=== PATIENT | female | born 1965 | race African-American/Black ===

== ENCOUNTER 2025-04-21 15:54 | Inpatient (IN) | payer BC ==
[~2025-04-21] VITALS: Ht 190.5 cm; Wt 61.2 kg
[~2025-04-21 15:54] MED LIST: ASPI-1497 PO; ATOR40TA70 PO; COR6 PO; ERGO400C PO; FOLI-43 PO; GABA-529 PO; HYDR-4001 MT; LEVO25TA7 PO; NICO-786 TD; PANT40TA51 PO; POTA-204 PO; THIA100T72 MT
[2025-04-21 15:57] VITALS: O2SAT 99
[2025-04-21] MEDS: SODIUM CHLORIDE 0.9% 1,000 ML IV ONE (16:19)
[2025-04-21] MEDS: DEXTROSE 50% WATER 50ML SYRINGE IV ONE (16:19)
[2025-04-21 16:53] LABS: BASOPHILS % 0.3 % (0.0-2.0); EOSINOPHILS % 0.2 % (0.0-5.0); HEMATOCRIT. 22.7 % (36.0-48.0); HEMOGLOBIN. 7.5 g/dL (12.0-16.0); LYMPHOCYTES % 19.2 % (20.0-50.0); MEAN PLATELET VOLUME 8.1 fl (7.4-10.4); MONOCYTES % 13.7 % (2.0-8.0); NEUTROPHILS % 66.6 % (40.0-76.0); PLATELET 181 x1000/uL (130-400); RED BLOOD CELL COUNT 1.68 mill/uL (4.2-5.4); RED CELL DISTRIBUTION WIDTH 17.9 % (11.6-14.6)
[2025-04-21 16:55] LABS: ADD RBC MORPHOLOGY YES
[2025-04-21 17:16] LABS: UREA NITROGEN BLOOD 8 mg/dL (9-23)
[2025-04-21 17:18] LABS: PHOSPHORUS 2.6 mg/dL (2.5-4.9)
[2025-04-21 17:28] LABS: CREATININE 0.3 mg/dL (0.6-1.0)
[2025-04-21 17:57] LABS: PLATELET ESTIMATE NORMAL
[2025-04-21] MEDS: POTASSIUM CHLORIDE 20MEQ TABLET SR PO ONE (18:00)
[2025-04-21] MEDS ORDERED: CLONIDINE 0.1MG TABLET PO PRN (21:45)
[2025-04-21] MEDS ORDERED: ONDANSETRON HCL 4MG/2ML INJ IV PRN (21:45)
[2025-04-21] MEDS ORDERED: IPRATROPIUM/ALBUTEROL 0.5-3(2.5)MG/3ML NEB HHN PRN (21:45)
[2025-04-21] MEDS ORDERED: DOCUSATE SODIUM 100MG CAPSULE PO PRN (21:45)
[2025-04-21] MEDS: MAGNESIUM 2 G PREMIX 50 ML IV NR (22:07)
[2025-04-21] MEDS: SODIUM CHLORIDE 0.9% 1,000 ML IV SCH (22:07)
[2025-04-21] MEDS: POTASSIUM CHLORIDE 20MEQ TABLET SR PO NR (22:38)
[2025-04-21] MEDS: HYDROCODONE/ACETAMINOPHEN 5/325MG TABLET PO PRN (22:59)
[2025-04-22 00:06] LABS: CREATINE KINASE MB FRACTION 0.9 ng/mL (0.5-3.6)
[2025-04-22 00:07] LABS: TROPONIN I HIGH SENSITIVITY < 4 ng/L (3.0-34)
[2025-04-22 00:10] LABS: T4 FREE 0.63 ng/dL (0.89-1.76)
[2025-04-22] MEDS: ACETAMINOPHEN 325MG TABLET PO PRN (04:16)
[2025-04-22] MEDS: POTASSIUM CHLORIDE 20MEQ TABLET SR PO SCH (04:17)
[2025-04-22] MEDS: PIPERACILLIN/TAZO 3.375G/50ML 50 ML IV SCH (05:28)
[2025-04-22] MEDS: BLOOD SUGAR DIAGNOSTIC STRIP TEST SCH (06:45)
[2025-04-22 07:15] VITALS: BP 94/68; PULSE 110; RESP 20; TEMP 36.7
[2025-04-22 08:00] VITALS: BP 102/75; RESP 18; TEMP 36.6; O2SAT 97
[2025-04-22] MEDS: INSULIN LISPRO 100 UNITS/ML SUBCUT SCH (09:15)
[2025-04-22] MEDS: PANTOPRAZOLE SODIUM 40 MG/VIAL IV SCH (11:37)
[2025-04-22 12:00] VITALS: BP 91/66; PULSE 97; RESP 18; TEMP 36.7; O2SAT 97
[2025-04-22 12:41] LABS: BASOPHILS % 0.4 % (0.0-2.0); EOSINOPHILS % 0.6 % (0.0-5.0); LYMPHOCYTES % 22.6 % (20.0-50.0); MEAN PLATELET VOLUME 8.6 fl (7.4-10.4); MONOCYTES % 11.4 % (2.0-8.0); NEUTROPHILS % 65.0 % (40.0-76.0); PLATELET 179 x1000/uL (130-400); RED BLOOD CELL COUNT 1.51 mill/uL (4.2-5.4); RED CELL DISTRIBUTION WIDTH 18.3 % (11.6-14.6)
[2025-04-22 12:54] LABS: HEMATOCRIT. 20.2 % (36.0-48.0); HEMOGLOBIN. 6.7 g/dL (12.0-16.0)
[2025-04-22 12:56] LABS: TRIGLYCERIDE 271 mg/dL (0-150); UREA NITROGEN BLOOD 11 mg/dL (9-23)
[2025-04-22 12:57] LABS: ASPARTATE AMINOTRANSFERASE 218 IU/L (<34); LDL CHOLESTEROL 75 mg/dL (5-100)
[2025-04-22 12:58] LABS: BILIRUBIN DIRECT 2.9 mg/dL (<=3.0); CREATINE KINASE MB FRACTION 0.9 ng/mL (0.5-3.6); PHOSPHORUS 1.2 mg/dL (2.5-4.9); TROPONIN I HIGH SENSITIVITY < 4 ng/L (3.0-34)
[2025-04-22 12:59] LABS: BILIRUBIN TOTAL 4.1 mg/dL (0.1-1.0); PROTEIN TOTAL 4.6 g/dL (6.0-8.3)
[2025-04-22 13:02] LABS: INR 1.3
[2025-04-22 13:03] LABS: FOLIC ACID (FOLATE) SERUM 4.73 ng/mL (>5.38)
[2025-04-22 13:11] LABS: CREATININE 0.5 mg/dL (0.6-1.0)
[2025-04-22 13:12] LABS: VITAMIN B12 SERUM > 2000 pg/mL (211-911)
[2025-04-22 16:00] VITALS: BP 93/65; PULSE 95; RESP 18; TEMP 36.6; O2SAT 97
[2025-04-22 18:44] LABS: ASPARTATE AMINOTRANSFERASE 197 IU/L (<34); BILIRUBIN DIRECT 2.7 mg/dL (<=3.0); BILIRUBIN TOTAL 3.8 mg/dL (0.1-1.0); PROTEIN TOTAL 4.6 g/dL (6.0-8.3)
[2025-04-22] MEDS ORDERED: SODIUM CHLORIDE 0.9% (SEPSIS BOLUS) IV ONE (19:45)
[2025-04-22 20:00] VITALS: BP 97/69; PULSE 101; RESP 18; TEMP 36.7; O2SAT 100
[2025-04-22] MEDS: SODIUM CHLORIDE 0.9% 1,000 ML IV ONE (20:00)
[2025-04-22] MEDS ORDERED: SODIUM PHOSPHATE 15 MMOL in DEXT 5% WATER 245 ML IV SCH (21:00)
[2025-04-22 23:20] LABS: BG BASE EXCESS 2.2 mmol/L (-2.0-3.0); BG CARBOXYHEMOGLOBIN 0.9 % (0.5-1.5); BG DEOXYHEMOGLOBIN 3.7 % (0.0-5.0); BG FRACTION INSPIRED OXYGEN 21; BG HCO3 ACT 24.6 mmol/L (21.0-28.0); BG METHEMOGLOBIN 0.1 % (0.5-1.5); BG OXYGEN SATURATION 96.3 % (94.0-98.0); BG OXYHEMOGLOBIN 95.3 % (94.0-98.0); BG PCO2 29.2 mmHg (32.0-45.0); BG PH 7.544 (7.350-7.450); BG PO2 86.7 mmHg (83.0-108.0); BG SAMPLE SITE RIGHT RADIAL; BG TOTAL HEMOGLOBIN 7.3 g/dL (12.0-16.0); BG VENT MODE ROOM AIR
[2025-04-23] VITALS (12 sets, daily range): BP systolic 86–121; BP diastolic 61–90; PULSE 96–116; RESP 16–20; TEMP 35.11392–37; O2SAT 95–100
[2025-04-23 05:59] LABS: *AMPHETAMINES SCREEN URINE NEGATIVE (NEGATIVE); *BARBITURATES SCREEN URINE NEGATIVE (NEGATIVE); *BENZODIAZEPINES SCREEN URINE NEGATIVE (NEGATIVE); *COCAINE SCREEN URINE NEGATIVE (NEGATIVE); CANNABINOID URINE SCREEN PRESUMPTIVE POSITIVE (NEGATIVE); ECSTASY MDMA SCREEN URINE NEGATIVE (NEGATIVE); METHADONE URINE SCREEN NEGATIVE (NEGATIVE); OPIATES URINE SCREEN PRESUMPTIVE POSITIVE (NEGATIVE); PHENCYCLIDINE URINE SCREEN NEGATIVE (NEGATIVE)
[2025-04-23 06:13] LABS: CLARITY URINE CLOUDY (CLEAR); COLOR URINE DARK YELLOW (YELLOW); GLUCOSE URINE NEGATIVE (NEGATIVE); KETONES URINE TRACE (NEGATIVE); LEUKOCYTE ESTERASE URINE 1+ (NEGATIVE); NITRITE URINE POSITIVE (NEGATIVE); OCCULT BLOOD URINE NEGATIVE (NEGATIVE); PH URINE 8.5 (4.5-8.0); PROTEIN URINE 1+ (NEGATIVE); SPECIFIC GRAVITY URINE 1.025 (1.005-1.030); UROBILINOGEN URINE 4.0 E.U./dL (0.2-1.0)
[2025-04-23] MEDS: LEVOTHYROXINE SODIUM 50MCG TABLET PO SCH (06:15)
[2025-04-23 06:27] LABS: BASOPHILS % 0.3 % (0.0-2.0); EOSINOPHILS % 0.9 % (0.0-5.0); LYMPHOCYTES % 23.2 % (20.0-50.0); MEAN PLATELET VOLUME 8.4 fl (7.4-10.4); MONOCYTES % 6.4 % (2.0-8.0); NEUTROPHILS % 69.2 % (40.0-76.0); PLATELET 179 x1000/uL (130-400); RED BLOOD CELL COUNT 1.46 mill/uL (4.2-5.4); RED CELL DISTRIBUTION WIDTH 18.0 % (11.6-14.6)
[2025-04-23 06:33] LABS: HYALINE CASTS URINE 0-5 /lpf; SQUAMOUS EPITHELIAL CELL URINE 2+ /lpf (RARE/1+)
[2025-04-23 06:34] LABS: WBC URINE 0-2 /hpf (0-2)
[2025-04-23 06:35] LABS: BACTERIA URINE 3+; RBC URINE NONE SEEN /hpf (0-2); YEAST URINE 1+
[2025-04-23 06:36] LABS: CREATININE 0.5 mg/dL (0.6-1.0)
[2025-04-23 06:37] LABS: UREA NITROGEN BLOOD 11 mg/dL (9-23)
[2025-04-23 06:38] LABS: LACTATE DEHYDROGENASE 365 IU/L (120-246)
[2025-04-23 06:52] LABS: HEMATOCRIT. 19.5 % (36.0-48.0); HEMOGLOBIN. 6.6 g/dL (12.0-16.0)
[2025-04-23] MEDS: FOLIC ACID 1MG TABLET PO SCH (08:44)
[2025-04-23 20:10] LABS: PLATELET 180 x1000/uL (130-400); RED BLOOD CELL COUNT 1.91 mill/uL (4.2-5.4); RED CELL DISTRIBUTION WIDTH 21.2 % (11.6-14.6)
[2025-04-24] VITALS: BP 102/77; PULSE 91; RESP 16; TEMP 36.4; O2SAT 97
[2025-04-24 04:00] VITALS: BP 99/46; PULSE 121; RESP 16; TEMP 36.4; O2SAT 97
[2025-04-24 06:46] LABS: BASOPHILS % 0.3 % (0.0-2.0); EOSINOPHILS % 0.9 % (0.0-5.0); HEMATOCRIT. 21.2 % (36.0-48.0); HEMOGLOBIN. 7.2 g/dL (12.0-16.0); LYMPHOCYTES % 20.7 % (20.0-50.0); MEAN PLATELET VOLUME 8.8 fl (7.4-10.4); MONOCYTES % 8.0 % (2.0-8.0); NEUTROPHILS % 70.1 % (40.0-76.0); PLATELET 173 x1000/uL (130-400); RED BLOOD CELL COUNT 1.63 mill/uL (4.2-5.4); RED CELL DISTRIBUTION WIDTH 21.6 % (11.6-14.6)
[2025-04-24 07:08] LABS: CREATININE 0.4 mg/dL (0.6-1.0); UREA NITROGEN BLOOD 9 mg/dL (9-23)
[2025-04-24 07:10] LABS: ASPARTATE AMINOTRANSFERASE 154 IU/L (<34); BILIRUBIN TOTAL 3.2 mg/dL (0.1-1.0); PROTEIN TOTAL 4.7 g/dL (6.0-8.3)
[2025-04-24 08:00] VITALS: BP 98/68; PULSE 106; RESP 18; TEMP 36.2; O2SAT 100
[2025-04-24] MEDS ORDERED: IOHEXOL-350 100 ML BOTTLE ONE (10:19)
[2025-04-24] MEDS: POTASSIUM CHLORIDE 20MEQ TABLET SR PO SCH (11:00)
[2025-04-24 12:00] VITALS: BP 84/62; PULSE 97; RESP 18; TEMP 36.4; O2SAT 99
[2025-04-24 14:07] LABS: FOLICLE STIMULATING HORMONE 31.4 mIU/mL (.); PROLACTIN 12.2 ng/mL (3.6-25.2)
[2025-04-24 16:00] VITALS: BP 80/55; PULSE 99; RESP 18; TEMP 36.3; O2SAT 97
[2025-04-24 20:00] VITALS: BP 102/74; PULSE 103; RESP 16; TEMP 36.4; O2SAT 100
[2025-04-25] VITALS (8 sets, daily range): BP systolic 82–106; BP diastolic 59–76; PULSE 90–100; RESP 18–61; TEMP 35.9–36.7; O2SAT 94–100
[2025-04-25 06:32] LABS: BASOPHILS % 0.6 % (0.0-2.0); CREATININE 0.5 mg/dL (0.6-1.0); EOSINOPHILS % 1.4 % (0.0-5.0); LYMPHOCYTES % 27.5 % (20.0-50.0); MEAN PLATELET VOLUME 8.9 fl (7.4-10.4); MONOCYTES % 10.0 % (2.0-8.0); NEUTROPHILS % 60.5 % (40.0-76.0); PLATELET 143 x1000/uL (130-400); RED BLOOD CELL COUNT 1.46 mill/uL (4.2-5.4); RED CELL DISTRIBUTION WIDTH 21.2 % (11.6-14.6)
[2025-04-25 06:33] LABS: UREA NITROGEN BLOOD 10 mg/dL (9-23)
[2025-04-25 06:35] LABS: ASPARTATE AMINOTRANSFERASE 109 IU/L (<34); BILIRUBIN DIRECT 1.6 mg/dL (<=3.0); PROTEIN TOTAL 4.2 g/dL (6.0-8.3)
[2025-04-25 06:39] LABS: BILIRUBIN TOTAL 2.2 mg/dL (0.1-1.0)
[2025-04-25] MEDS: POTASSIUM CHLORIDE 20MEQ TABLET SR PO NR (06:55)
[2025-04-25 07:49] LABS: HEMATOCRIT. 19.1 % (36.0-48.0)
[2025-04-25 07:52] LABS: HEMOGLOBIN. 6.3 g/dL (12.0-16.0)
[2025-04-25] MEDS ORDERED: NALOXONE HCL 0.4MG/ML VIAL IV PRN (08:45)
[2025-04-25] MEDS: HYDROCODONE/ACETAMINOPHEN 5/325MG TABLET PO PRN (09:03)
[2025-04-25] MEDS: FOLIC ACID 1MG TABLET PO SCH (09:04)
[2025-04-25] MEDS: MIDODRINE HCL 5MG TABLET PO SCH (09:04)
[2025-04-26] VITALS: BP 90/70; PULSE 99; RESP 18; TEMP 35.7; O2SAT 99
[2025-04-26 04:00] VITALS: BP 90/68; PULSE 99; RESP 18; TEMP 35.9; O2SAT 99
[2025-04-26 06:32] LABS: BASOPHILS % 1.3 % (0.0-2.0); EOSINOPHILS % 1.6 % (0.0-5.0); HEMATOCRIT. 22.7 % (36.0-48.0); HEMOGLOBIN. 7.3 g/dL (12.0-16.0); LYMPHOCYTES % 29.4 % (20.0-50.0); MEAN PLATELET VOLUME 8.7 fl (7.4-10.4); MONOCYTES % 12.9 % (2.0-8.0); NEUTROPHILS % 54.8 % (40.0-76.0); PLATELET 153 x1000/uL (130-400); RED BLOOD CELL COUNT 1.67 mill/uL (4.2-5.4); RED CELL DISTRIBUTION WIDTH 21.6 % (11.6-14.6)
[2025-04-26 06:38] LABS: ADD RBC MORPHOLOGY NO
[2025-04-26 07:15] LABS: CREATININE 0.4 mg/dL (0.6-1.0)
[2025-04-26 07:16] LABS: UREA NITROGEN BLOOD 10 mg/dL (9-23)
[2025-04-26 07:18] LABS: ASPARTATE AMINOTRANSFERASE 104 IU/L (<34); BILIRUBIN DIRECT 1.7 mg/dL (<=3.0); BILIRUBIN TOTAL 2.2 mg/dL (0.1-1.0); PROTEIN TOTAL 4.8 g/dL (6.0-8.3)
[2025-04-26 08:00] VITALS: BP 103/74; PULSE 80; RESP 20; TEMP 36.4; O2SAT 100
[2025-04-26] MEDS: CYANOCOBALAMIN 1000MCG/ML VIAL IM SCH (10:58)
[2025-04-26 12:00] VITALS: BP 107/76; PULSE 89; RESP 20; TEMP 36.4; O2SAT 98
[2025-04-26 16:00] VITALS: BP 102/74; PULSE 92; RESP 18; TEMP 36.7; O2SAT 99
[2025-04-26] MEDS: DEXTROSE 50% WATER 50ML SYRINGE IV PRN (17:58)
[2025-04-26 20:00] VITALS: BP 109/77; PULSE 89; RESP 19; TEMP 36.3; O2SAT 100
[2025-04-27] VITALS: BP 100/69; PULSE 90; RESP 18; TEMP 36.4; O2SAT 100
[2025-04-27 04:00] VITALS: BP 110/76; PULSE 85; RESP 19; TEMP 36.3; O2SAT 98
[2025-04-27 07:00] LABS: HEMATOCRIT. 24.0 % (36.0-48.0); HEMOGLOBIN. 7.6 g/dL (12.0-16.0); RED BLOOD CELL COUNT 1.72 mill/uL (4.2-5.4); RED CELL DISTRIBUTION WIDTH 21.3 % (11.6-14.6)
[2025-04-27 07:46] LABS: CREATININE 0.5 mg/dL (0.6-1.0)
[2025-04-27 07:47] LABS: UREA NITROGEN BLOOD 8 mg/dL (9-23)
[2025-04-27 07:48] LABS: ASPARTATE AMINOTRANSFERASE 77 IU/L (<34); BILIRUBIN DIRECT 1.5 mg/dL (<=3.0)
[2025-04-27 07:49] LABS: BILIRUBIN TOTAL 2.0 mg/dL (0.1-1.0); PHOSPHORUS 2.0 mg/dL (2.5-4.9); PROTEIN TOTAL 4.7 g/dL (6.0-8.3)
[2025-04-27 08:00] VITALS: BP 105/77; PULSE 86; RESP 18; TEMP 36.4; O2SAT 100
[2025-04-27 09:45] LABS: PLATELET 139 x1000/uL (130-400)
[2025-04-27 09:49] LABS: SICKLE CELL SCREEN NEGATIVE (NEGATIVE)
[2025-04-27 09:53] LABS: BAND% 9.0 % (1.0-6.0); LYMPHOCYTES % MANUAL 30.0 % (20.0-60.0); MONOCYTES % MANUAL 12.0 % (2.0-8.0); NEUTROPHILS % MANUAL 49.0 % (45.0-75.0)
[2025-04-27 09:54] LABS: PLATELET ESTIMATE NORMAL
[2025-04-27 11:33] LABS: INR 1.3
[2025-04-27 12:00] VITALS: BP 112/91; PULSE 91; RESP 18; TEMP 36.4; O2SAT 100
[2025-04-27 16:00] VITALS: BP 93/66; PULSE 85; RESP 18; TEMP 36.4; O2SAT 100
[2025-04-27] MEDS: POTASSIUM PHOSPHATE 15 MMOL in DEXT 5% WATER 245 ML IV NR (16:18)
[2025-04-27] MEDS: LACTULOSE 20G/30ML UDC PO SCH (16:18)
[2025-04-27 20:00] VITALS: BP 100/74; PULSE 89; RESP 19; TEMP 36.7; O2SAT 95
[2025-04-27] MEDS: MAGNESIUM 2 G PREMIX 50 ML IV NR (20:37)
[2025-04-27] MEDS: PIPERACILLIN/TAZO 3.375G/50ML 50 ML IV SCH (22:55)
[2025-04-28] VITALS: BP 120/88; PULSE 75; RESP 18; TEMP 36.1; O2SAT 100
[2025-04-28 04:00] VITALS: BP 108/77; PULSE 51; RESP 18; TEMP 36.8; O2SAT 96
[2025-04-28 08:00] VITALS: BP 116/83; PULSE 80; RESP 18; TEMP 36.3; O2SAT 98
[2025-04-28] MEDS: METRONIDAZOLE 500 MG PREMIX 100 ML IV SCH (10:05)
[2025-04-28 10:26] LABS: HEMATOCRIT. 24.9 % (36.0-48.0); HEMOGLOBIN. 8.1 g/dL (12.0-16.0); MEAN PLATELET VOLUME 8.9 fl (7.4-10.4); PLATELET 173 x1000/uL (130-400); RED BLOOD CELL COUNT 1.87 mill/uL (4.2-5.4); RED CELL DISTRIBUTION WIDTH 20.1 % (11.6-14.6)
[2025-04-28 10:37] LABS: UREA NITROGEN BLOOD 6 mg/dL (9-23)
[2025-04-28 10:39] LABS: ASPARTATE AMINOTRANSFERASE 83 IU/L (<34); BILIRUBIN DIRECT 1.5 mg/dL (<=3.0); BILIRUBIN TOTAL 2.2 mg/dL (0.1-1.0)
[2025-04-28 10:40] LABS: PROTEIN TOTAL 4.9 g/dL (6.0-8.3)
[2025-04-28 11:11] LABS: CREATININE 0.3 mg/dL (0.6-1.0)
[2025-04-28] MEDS: LEVOFLOXACIN 750MG PREMIX 150 ML IV SCH (11:17)
[2025-04-28 12:00] VITALS: BP 99/74; PULSE 91; RESP 18; TEMP 36.5; O2SAT 100
[2025-04-28 15:34] LABS: BAND% 4.0 % (1.0-6.0); LYMPHOCYTES % MANUAL 42.0 % (20.0-60.0); MONOCYTES % MANUAL 17.0 % (2.0-8.0); NEUTROPHILS % MANUAL 37.0 % (45.0-75.0); PLATELET ESTIMATE NORMAL
[2025-04-28 16:00] VITALS: BP 104/75; PULSE 91; RESP 18; TEMP 36.4; O2SAT 99
[2025-04-28 20:00] VITALS: BP 128/84; PULSE 60; RESP 18; TEMP 36.7; O2SAT 98
[2025-04-29] VITALS (7 sets, daily range): BP systolic 90–122; BP diastolic 64–87; PULSE 61–99; RESP 16–18; TEMP 36.2–37.3; O2SAT 94–100
[2025-04-29] MEDS: ENOXAPARIN 60MG/0.6ML SYR SUBCUT SCH (16:46)
[2025-04-30] VITALS (11 sets, daily range): BP systolic 101–124; BP diastolic 64–95; PULSE 82–102; RESP 18–20; TEMP 36.2–37.16964; O2SAT 94–98
[2025-04-30] MEDS ORDERED: HYDRALAZINE 20MG/ML VIAL IV PRN (03:15)
[2025-04-30 08:15] LABS: HEMATOCRIT. 21.9 % (36.0-48.0); MEAN PLATELET VOLUME 9.1 fl (7.4-10.4); PLATELET 152 x1000/uL (130-400); RED BLOOD CELL COUNT 1.62 mill/uL (4.2-5.4); RED CELL DISTRIBUTION WIDTH 19.3 % (11.6-14.6)
[2025-04-30 08:28] LABS: HEMOGLOBIN. 7.0 g/dL (12.0-16.0)
[2025-04-30 08:29] LABS: UREA NITROGEN BLOOD 6 mg/dL (9-23)
[2025-04-30 08:31] LABS: ASPARTATE AMINOTRANSFERASE 45 IU/L (<34); BILIRUBIN DIRECT 1.3 mg/dL (<=3.0); BILIRUBIN TOTAL 1.7 mg/dL (0.1-1.0); PROTEIN TOTAL 4.1 g/dL (6.0-8.3)
[2025-04-30 09:06] LABS: CREATININE 0.5 mg/dL (0.6-1.0)
[2025-04-30 09:25] LABS: HEPATITIS A AB IGM NEGATIVE (Negative)
[2025-04-30 09:26] LABS: HEPATITIS B CORE AB IGM NEGATIVE (Negative); HEPATITIS C AB NON REACTIVE (Neg) (Negative)
[2025-04-30 13:55] LABS: BAND% 4.0 % (1.0-6.0); EOSINOPHILS % MANUAL 1.0 % (0.0-5.0); LYMPHOCYTES % MANUAL 26.0 % (20.0-60.0); MONOCYTES % MANUAL 14.0 % (2.0-8.0); NEUTROPHILS % MANUAL 55.0 % (45.0-75.0); PLATELET ESTIMATE NORMAL
[2025-05-01] VITALS: BP 118/85; PULSE 98; RESP 18; TEMP 36.6; O2SAT 95
[2025-05-01 04:00] VITALS: BP 126/93; PULSE 89; RESP 18; TEMP 36.6; O2SAT 98
[2025-05-01 07:03] LABS: HEMATOCRIT. 24.0 % (36.0-48.0); HEMOGLOBIN. 8.0 g/dL (12.0-16.0); MEAN PLATELET VOLUME 9.3 fl (7.4-10.4); PLATELET 146 x1000/uL (130-400); RED BLOOD CELL COUNT 1.99 mill/uL (4.2-5.4); RED CELL DISTRIBUTION WIDTH 27.0 % (11.6-14.6)
[2025-05-01 07:25] LABS: CREATININE 0.4 mg/dL (0.6-1.0); UREA NITROGEN BLOOD 5 mg/dL (9-23)
[2025-05-01 08:00] VITALS: BP 118/84; PULSE 87; RESP 18; TEMP 36.6; O2SAT 98
[2025-05-01] MEDS: POTASSIUM CHLORIDE 20MEQ TABLET SR PO SCH (09:24)
[2025-05-01 12:00] VITALS: BP 124/91; PULSE 82; RESP 18; TEMP 36.6; O2SAT 96
[2025-05-01 14:22] LABS: LYMPHOCYTES % MANUAL 28.0 % (20.0-60.0); MONOCYTES % MANUAL 10.0 % (2.0-8.0); NEUTROPHILS % MANUAL 62.0 % (45.0-75.0); PLATELET ESTIMATE NORMAL
[2025-05-01 16:00] VITALS: PULSE 103; RESP 18; TEMP 36.6; O2SAT 96
[2025-05-01 20:00] VITALS: BP 117/83; PULSE 87; RESP 18; TEMP 36.4; O2SAT 97
[2025-05-02] VITALS: BP 129/92; PULSE 98; RESP 18; TEMP 37.3; O2SAT 98
[2025-05-02 04:00] VITALS: BP 118/76; PULSE 92; RESP 18; TEMP 36.4; O2SAT 96
[2025-05-02 12:00] VITALS: BP 162/135; PULSE 97; RESP 18; TEMP 36.4; O2SAT 98
[2025-05-02 16:00] VITALS: BP 124/95; PULSE 91; RESP 18; TEMP 36.4; O2SAT 100
[2025-05-02] MEDS: DEXT 5%/0.9% NACL 1,000 ML IV SCH (17:15)
[2025-05-02 20:00] VITALS: BP 107/69; PULSE 53; RESP 53; TEMP 36.1; O2SAT 18
[2025-05-03] VITALS: BP 128/91; PULSE 104; RESP 17; TEMP 36.8; O2SAT 98
[2025-05-03 04:00] VITALS: BP 135/98; PULSE 104; RESP 19; TEMP 36.9; O2SAT 99
[2025-05-03 06:36] LABS: BASOPHILS % 1.3 % (0.0-2.0); EOSINOPHILS % 0.3 % (0.0-5.0); HEMATOCRIT. 25.9 % (36.0-48.0); HEMOGLOBIN. 8.4 g/dL (12.0-16.0); LYMPHOCYTES % 28.2 % (20.0-50.0); MEAN PLATELET VOLUME 8.8 fl (7.4-10.4); MONOCYTES % 10.5 % (2.0-8.0); NEUTROPHILS % 59.7 % (40.0-76.0); PLATELET 155 x1000/uL (130-400); RED BLOOD CELL COUNT 2.11 mill/uL (4.2-5.4); RED CELL DISTRIBUTION WIDTH 25.4 % (11.6-14.6)
[2025-05-03 07:04] LABS: CREATININE 0.4 mg/dL (0.6-1.0); UREA NITROGEN BLOOD < 5 mg/dL (9-23)
[2025-05-03 07:07] LABS: T4 FREE 0.67 ng/dL (0.89-1.76)
[2025-05-03 08:00] VITALS: BP 132/93; PULSE 94; RESP 18; TEMP 36.6; O2SAT 97
[2025-05-03] MEDS: ACETAMINOPHEN 325MG TABLET PO PRN (08:45)
[2025-05-03] MEDS: POTASSIUM CHLORIDE 20MEQ TABLET SR PO SCH ×2 (09:44→12:15)
[2025-05-03 12:00] VITALS: BP 117/90; PULSE 88; RESP 16; TEMP 36.9; O2SAT 98
[2025-05-03 16:00] VITALS: BP 126/96; PULSE 95; RESP 18; TEMP 36.2; O2SAT 99
[2025-05-03 20:00] VITALS: BP 123/87; PULSE 100; RESP 18; TEMP 36.3; O2SAT 97
[2025-05-04] VITALS: BP 118/85; PULSE 100; RESP 18; TEMP 36.5; O2SAT 98
[2025-05-04 04:00] VITALS: BP 117/89; PULSE 93; RESP 18; TEMP 36.4; O2SAT 98
[2025-05-04 05:52] LABS: CREATININE 0.4 mg/dL (0.6-1.0)
[2025-05-04 05:54] LABS: UREA NITROGEN BLOOD < 5 mg/dL (9-23)
[2025-05-04 05:55] LABS: PHOSPHORUS 3.2 mg/dL (2.5-4.9)
[2025-05-04 05:56] LABS: BILIRUBIN TOTAL 1.4 mg/dL (0.1-1.0)
[2025-05-04 05:57] LABS: BASOPHILS % 1.1 % (0.0-2.0); EOSINOPHILS % 0.2 % (0.0-5.0); HEMATOCRIT. 27.8 % (36.0-48.0); HEMOGLOBIN. 8.9 g/dL (12.0-16.0); LYMPHOCYTES % 24.8 % (20.0-50.0); MEAN PLATELET VOLUME 8.7 fl (7.4-10.4); MONOCYTES % 11.4 % (2.0-8.0); NEUTROPHILS % 62.5 % (40.0-76.0); PLATELET 174 x1000/uL (130-400); RED BLOOD CELL COUNT 2.24 mill/uL (4.2-5.4); RED CELL DISTRIBUTION WIDTH 25.0 % (11.6-14.6)
[2025-05-04] MEDS: LEVOTHYROXINE SODIUM 75MCG TABLET PO SCH (06:31)
[2025-05-04 08:00] VITALS: BP 126/93; PULSE 98; RESP 18; TEMP 36.7; O2SAT 98
[2025-05-04] MEDS: MAGNESIUM 2 G PREMIX 50 ML IV NR (08:01)
[2025-05-04 12:00] VITALS: BP 110/78; PULSE 92; RESP 20; TEMP 36.6; O2SAT 99
[2025-05-04 20:00] VITALS: BP 108/81; PULSE 86; RESP 20; TEMP 36.6; O2SAT 97
[2025-05-04] MEDS ORDERED: IOHEXOL-300 100 ML BOTTLE ONE (22:07)
[2025-05-05] VITALS (12 sets, daily range): BP systolic 109–142; BP diastolic 83–102; PULSE 81–110; RESP 16–27; TEMP 36.3–37; O2SAT 97–100
[2025-05-05] MEDS ORDERED: IOHEXOL-300 100 ML BOTTLE ONE (07:15)
[2025-05-05] MEDS ORDERED: LIDOCAINE HCL 1% 10 MG/ML 10ML VIAL ONE (07:15)
[2025-05-05] MEDS: CEFAZOLIN 1000MG PREMIX 50 ML IV ONE (07:45)
[2025-05-05 09:36] LABS: INR 1.2
[2025-05-05 09:43] LABS: BASOPHILS % 0.8 % (0.0-2.0); EOSINOPHILS % 0.5 % (0.0-5.0); HEMATOCRIT. 32.3 % (36.0-48.0); HEMOGLOBIN. 10.6 g/dL (12.0-16.0); LYMPHOCYTES % 19.3 % (20.0-50.0); MEAN PLATELET VOLUME 9.1 fl (7.4-10.4); MONOCYTES % 6.6 % (2.0-8.0); NEUTROPHILS % 72.8 % (40.0-76.0); PLATELET 211 x1000/uL (130-400); RED BLOOD CELL COUNT 2.66 mill/uL (4.2-5.4); RED CELL DISTRIBUTION WIDTH 24.2 % (11.6-14.6)
[2025-05-05 09:52] LABS: UREA NITROGEN BLOOD < 5 mg/dL (9-23)
[2025-05-05 09:53] LABS: CREATININE 0.4 mg/dL (0.6-1.0)
[2025-05-05 09:55] LABS: ASPARTATE AMINOTRANSFERASE 26 IU/L (<34); BILIRUBIN DIRECT 1.3 mg/dL (<=3.0); PHOSPHORUS 3.2 mg/dL (2.5-4.9)
[2025-05-05 09:56] LABS: BILIRUBIN TOTAL 1.7 mg/dL (0.1-1.0); PROTEIN TOTAL 6.0 g/dL (6.0-8.3)
[2025-05-05] MEDS: PIPERACILLIN/TAZO 3.375G/50ML 50 ML IV SCH (09:59)
[2025-05-05] MEDS ORDERED: HEPARIN 25,000 UNITS PREMIX 250 ML IV SCH (11:30)
[2025-05-05] MEDS: HEPARIN 80 UNITS/KG BOLUS IV NR (12:51)
[2025-05-05] MEDS: HEPARIN 25,000 UNITS PREMIX 250 ML IV SCH (14:59)
[2025-05-05] MEDS ORDERED: HEPARIN BOLUS PRN aPTT 37-44 IV (17:00)
[2025-05-05] MEDS ORDERED: HEPARIN BOLUS PRN aPTT <36 IV (17:00)
[2025-05-05] MEDS: RIVAROXABAN 10 MG TABLET PO SCH (17:10)
[2025-05-06] VITALS (42 sets, daily range): BP systolic 62–155; BP diastolic 27–138; PULSE 92–124; RESP 13–30; TEMP 36.2–36.5; O2SAT 96–99
[2025-05-06] MEDS ORDERED: NALOXONE HCL 0.4MG/ML VIAL IV PRN (01:15)
[2025-05-06 06:07] LABS: CREATININE 0.4 mg/dL (0.6-1.0); UREA NITROGEN BLOOD < 5 mg/dL (9-23)
[2025-05-06] MEDS ORDERED: RIVAROXABAN 2.5 MG TABLET PO SCH (09:00)
[2025-05-06 11:29] LABS: BASOPHILS % 1.3 % (0.0-2.0); EOSINOPHILS % 0.6 % (0.0-5.0); HEMATOCRIT. 29.9 % (36.0-48.0); HEMOGLOBIN. 9.8 g/dL (12.0-16.0); LYMPHOCYTES % 24.4 % (20.0-50.0); MEAN PLATELET VOLUME 9.2 fl (7.4-10.4); MONOCYTES % 9.8 % (2.0-8.0); NEUTROPHILS % 63.9 % (40.0-76.0); PLATELET 225 x1000/uL (130-400); RED BLOOD CELL COUNT 2.41 mill/uL (4.2-5.4); RED CELL DISTRIBUTION WIDTH 24.3 % (11.6-14.6)
[2025-05-06] MEDS ORDERED: HEPARIN 1000 UNITS/ML 10ML ONE (11:57)
[2025-05-06] MEDS ORDERED: LIDOCAINE HCL 1% 20ML VIAL ONE (11:57)
[2025-05-06] MEDS ORDERED: IODIXANOL 320MG/ML 100 ML BOTTLE IV ONE ×2 (11:57→14:02)
[2025-05-06] MEDS ORDERED: MIDAZOLAM HCL 2 MG/2 ML VIAL ONE ×2 (12:42→13:11)
[2025-05-06] MEDS ORDERED: FENTANYL CITRATE/PF 50MCG/ML 2ML VIAL ONE ×2 (12:42→13:11)
[2025-05-06] MEDS ORDERED: DIPHENHYDRAMINE 50MG/ML VIAL ONE (13:26)
[2025-05-06 15:24] LABS: BASOPHILS % 0.9 % (0.0-2.0); EOSINOPHILS % 0.7 % (0.0-5.0); LYMPHOCYTES % 28.5 % (20.0-50.0); MEAN PLATELET VOLUME 8.8 fl (7.4-10.4); MONOCYTES % 8.4 % (2.0-8.0); NEUTROPHILS % 61.5 % (40.0-76.0); PLATELET 238 x1000/uL (130-400); RED BLOOD CELL COUNT 1.92 mill/uL (4.2-5.4); RED CELL DISTRIBUTION WIDTH 23.3 % (11.6-14.6)
[2025-05-06 15:37] LABS: HEMOGLOBIN. 7.7 g/dL (12.0-16.0)
[2025-05-06 15:38] LABS: HEMATOCRIT. 22.8 % (36.0-48.0)
[2025-05-06] MEDS: MORPHINE SULFATE 2 MG/ML INJ (NOT FOR IM USE) IV PRN (17:37)
[2025-05-06] MEDS ORDERED: PHENYLEPHRINE 50MG/250ML PMX 250 ML IV PRN (18:00)
[2025-05-06] MEDS: DEXT 5%/0.9% NACL 1,000 ML IV SCH (18:10)
[2025-05-07] VITALS (51 sets, daily range): BP systolic 89–126; BP diastolic 73–100; PULSE 89–125; RESP 12–31; TEMP 36.3–37.3; O2SAT 95–99
[2025-05-07 06:34] LABS: CREATININE 0.3 mg/dL (0.6-1.0); UREA NITROGEN BLOOD < 5 mg/dL (9-23)
[2025-05-07 06:47] LABS: BASOPHILS % 1.3 % (0.0-2.0); EOSINOPHILS % 0.2 % (0.0-5.0); HEMATOCRIT. 26.5 % (36.0-48.0); HEMOGLOBIN. 8.9 g/dL (12.0-16.0); LYMPHOCYTES % 23.0 % (20.0-50.0); MEAN PLATELET VOLUME 8.9 fl (7.4-10.4); MONOCYTES % 10.4 % (2.0-8.0); NEUTROPHILS % 65.1 % (40.0-76.0); PLATELET 236 x1000/uL (130-400); RED BLOOD CELL COUNT 2.51 mill/uL (4.2-5.4); RED CELL DISTRIBUTION WIDTH 34.0 % (11.6-14.6)
[2025-05-07 06:49] LABS: ADD RBC MORPHOLOGY NO
[2025-05-07] MEDS: POTASSIUM CHLORIDE 20MEQ TABLET SR PO SCH (08:16)
[2025-05-08] MEDS: PIPERACILLIN/TAZO 3.375G/50ML 50 ML IV SCH (00:10)
[2025-05-08] MEDS: POTASSIUM CHLORIDE 20MEQ TABLET SR PO NR (00:11)
[2025-05-08 08:00] VITALS: BP 107/69; PULSE 101; RESP 18; TEMP 36.8; O2SAT 97
[2025-05-08 12:00] VITALS: BP 109/81; PULSE 94; RESP 18; TEMP 36.6; O2SAT 98
[2025-05-08 16:00] VITALS: BP 122/90; PULSE 101; RESP 18; TEMP 36.6; O2SAT 98
[2025-05-08 20:00] VITALS: BP 116/91; PULSE 97; RESP 19; TEMP 37.5; O2SAT 100
[2025-05-09] VITALS: BP 115/82; PULSE 107; RESP 18; TEMP 36.2; O2SAT 98
[2025-05-09 04:00] VITALS: BP 118/90; PULSE 102; RESP 19; TEMP 37.2; O2SAT 97
[2025-05-09 08:00] VITALS: BP 124/94; PULSE 103; RESP 20; TEMP 36.2; O2SAT 97
[2025-05-09 12:00] VITALS: BP 109/77; PULSE 101; RESP 20; TEMP 36.3; O2SAT 97
[2025-05-09 16:00] VITALS: BP 130/95; PULSE 101; RESP 20; TEMP 36.3; O2SAT 99
== END 2025-05-09 17:45 | disposition home or self-care (01) | DRG 853 ==
LOC: ER 15:54 → EDBEDREQSVC 16:20 → EDBEDREQTM 17:57 → EDBEDREQ 17:57 → ENRESERV 18:03 → 5WST 18:13 → 6EST 05-04 15:28 → 7WST 05-05 13:13 → CVICU 05-06 16:00 → 6WST 05-07 12:55
PROVIDERS: ADMIT Internal Medicine; ATTEND Internal Medicine
PROC: 30233N1 Transfusion of Nonautologous Red Blood Cells into Peripheral Vein, Percutaneous Approach (ICD-10-PCS; 2025-04-23)
PROC: 06H03DZ Insertion of Intraluminal Device into Inferior Vena Cava, Percutaneous Approach (ICD-10-PCS; principal; 2025-05-05)
PROC: 047C3ZZ Dilation of Right Common Iliac Artery, Percutaneous Approach (ICD-10-PCS; 2025-05-06)
PROC: 047K3ZZ Dilation of Right Femoral Artery, Percutaneous Approach (ICD-10-PCS; 2025-05-06)
PROC: 04FC3ZZ Fragmentation of Right Common Iliac Artery, Percutaneous Approach (ICD-10-PCS; 2025-05-06)
PROC: 04FK3ZZ Fragmentation of Right Femoral Artery, Percutaneous Approach (ICD-10-PCS; 2025-05-06)
PROC: B41D1ZZ Fluoroscopy of Aorta and Bilateral Lower Extremity Arteries using Low Osmolar Contrast (ICD-10-PCS; 2025-05-06)
DX: A41.9 Sepsis, unspecified organism (principal); E43 Unspecified severe protein-calorie malnutrition; I26.99 Other pulmonary embolism without acute cor pulmonale; I82.411 Acute embolism and thrombosis of right femoral vein; E87.1 Hypo-osmolality and hyponatremia; N39.0 Urinary tract infection, site not specified; K57.32 Diverticulitis of large intestine without perforation or abscess without bleeding; Z68.1 Body mass index [BMI] 19.9 or less, adult; E87.20 Acidosis, unspecified; M48.56XA Collapsed vertebra, not elsewhere classified, lumbar region, initial encounter for fracture; D58.9 Hereditary hemolytic anemia, unspecified; E27.40 Unspecified adrenocortical insufficiency; D53.9 Nutritional anemia, unspecified; E87.6 Hypokalemia; E87.8 Other disorders of electrolyte and fluid balance, not elsewhere classified; E83.42 Hypomagnesemia; I11.0 Hypertensive heart disease with heart failure; K76.0 Fatty (change of) liver, not elsewhere classified; K52.9 Noninfective gastroenteritis and colitis, unspecified; R63.0 Anorexia; R62.7 Adult failure to thrive; I25.10 Atherosclerotic heart disease of native coronary artery without angina pectoris; D51.0 Vitamin B12 deficiency anemia due to intrinsic factor deficiency; E03.9 Hypothyroidism, unspecified; E11.40 Type 2 diabetes mellitus with diabetic neuropathy, unspecified; K44.9 Diaphragmatic hernia without obstruction or gangrene; R65.20 Severe sepsis without septic shock; I70.8 Atherosclerosis of other arteries; I50.9 Heart failure, unspecified; J43.2 Centrilobular emphysema; S30.1XXA Contusion of abdominal wall, initial encounter; I77.1 Stricture of artery; E11.649 Type 2 diabetes mellitus with hypoglycemia without coma; K21.9 Gastro-esophageal reflux disease without esophagitis; F10.20 Alcohol dependence, uncomplicated; D46.9 Myelodysplastic syndrome, unspecified; M06.9 Rheumatoid arthritis, unspecified; E78.5 Hyperlipidemia, unspecified; E11.51 Type 2 diabetes mellitus with diabetic peripheral angiopathy without gangrene; F17.210 Nicotine dependence, cigarettes, uncomplicated; Y90.9 Presence of alcohol in blood, level not specified; X58.XXXA Exposure to other specified factors, initial encounter; Y92.238 Other place in hospital as the place of occurrence of the external cause; Z95.5 Presence of coronary angioplasty implant and graft; I25.2 Old myocardial infarction; Z90.49 Acquired absence of other specified parts of digestive tract; Z95.828 Presence of other vascular implants and grafts; Z91.148 Patient's other noncompliance with medication regimen for other reason; Z86.718 Personal history of other venous thrombosis and embolism; Y93.89 Activity, other specified; Z86.711 Personal history of pulmonary embolism; Y99.8 Other external cause status
CPT/HCPCS: 36415; 36600; 37191; 37220; 37224; 71045; 74174; 74177; 75625; 76700; 80048; 80053; 80061; 80076; 80305; 81003; 82024; 82088; 82140; 82247; 82270; 82375; 82533; 82550; 82553; 82607; 82728; 82746; 82805; 82962; 83001; 83002; 83036; 83540; 83550; 83605; 83615; 83735; 83880; 84100; 84134; 84145; 84146; 84439; 84443; 84480; 84484; 85014; 85018; 85025; 85027; 85044; 85347; 85660; 86157; 86705; 86709; 86850; 86880; 86900; 86920; 87340; 93005; 93970; 96360; 99285; A4606; A6449; C1725; C1769; C1880; C1887; C1893; C1894; J0690; J1200; J1644; J1650; J1815; J1956; J2003; J2250; J2270; J2470; J2543; J3010; J3420; J3475; J3490; J7030; J7042; J7060; P9016; Q9967; C1761